=== PATIENT | female | born 1990 | race Caucasian/White ===

== ENCOUNTER → 2023-10-04 | Emergency (ER) | payer SELFPAY ==
[~2023-10-04] MED LIST: AZITHROMYCIN 250 MG TAB ONE; METOCLOPRAMIDE 10 MG/2mL INJ ONE; NA CHLORIDE 0.9% 1,000 ML ONE
[2023-10-04 02:27] LABS: Absolute Lymphocytes (CBC) 0.6 K/uL (0.7-4.9); Absolute Monocytes 0.6 K/uL (0.1-1.3); Basophils % 0.2 % (0-1.3); Eosinophils % 0.2 % (0-4.4); Hematocrit 37.1 % (36.0-45.0); Hemoglobin 12.6 g/dL (12.0-15.0); Lymphocytes % 5.1 % (15.3-44.8); MCHC 33.9 g/dL (32.0-36.0); MCV 97.3 fL (80-100); Monocytes % 5.2 % (3.3-12.3); Neutrophils % 89.3 % (41.7-73.7); Nucleated Red Blood Cells % 0.1 % (0-0); Platelets 166 thou/uL (152-406); RBC Red Blood Cell Count 3.82 M/uL (3.86-4.86); Red Cell Distribution Width 12.6 % (12.1-15.2)
[2023-10-04 02:32] LABS: Albumin 3.6 g/dL (3.4-5.0); Anion Gap 8.8 mEq/L (5.0-15.0); Bilirubin Total 0.6 mg/dL (0.2-1.0); Globulin 3.5 g/dL (2.3-3.5); Potassium 3.8 mEq/L (3.5-5.1); Protein, Total 7.1 g/dL (6.4-8.2)
[2023-10-04 04:01] LABS: Band Neutrophils 9 % (0-1); Blood Morphology Comment NOT SEEN (NOT SEEN); Lymphocytes 4 % (15-42); Monocytes 5 % (0-10); Platelet Estimate ADEQ
--- NOTE | 2023-10-04 04:37 | ER ---
Nurse's Notes [facility] Name: Mckenna Wang Age: 33 yrs Sex: Female : 1990 Arrival Date: 10/04/2023 Time: 00:57 Bed 8 Private MD: Diagnosis: Lobar pneumonia, unspecified organism;left lung pneumonia Presentation: 10/03 01:14 Chief complaint: Patient states: had an endoscopy done today with a few biopsys at 3 lg3 and i started running fever around 1900 tonight. tmax 101.3. 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 Coronavirus screen: Client denies travel out of the [place] in the last 14 days. At this time, the client does not indicate any symptoms associated with coronavirus-19. Ebola Screen: No symptoms or risks identified at this time. Initial Sepsis Screen: Does the patient meet any 2 criteria? No. Patient's initial sepsis screen is negative. Does the patient have a suspected source of infection? No. Patient's initial sepsis screen is negative. Risk Assessment: Do you want to hurt yourself or someone else? Patient reports no desire to harm self or others. Onset of symptoms was October 03, 2023. 01:14 Method Of Arrival: Ambulatory lg3 01:14 Acuity: RHIANNON 3 lg3 Triage Assessment: 01:20 General: Appears in no apparent distress. uncomfortable, Behavior is calm, cooperative. lg3 Pain: Complains of pain in abdomen. EENT: No deficits noted. No signs and/or symptoms were reported regarding the EENT system. Neuro: No deficits noted. Ramires Agitation-Sedation Scale (RASS): 0 - Alert and Calm Level of Consciousness is awake, alert, obeys commands, Oriented to person, place, time, situation. Cardiovascular: No deficits noted. Denies chest pain, shortness of breath, Capillary refill < 3 seconds Clubbing of nail beds is absent JVD is absent Patient's skin is warm and dry. Respiratory: No deficits noted. Airway is patent Respiratory effort is even, unlabored, Respiratory pattern is regular, symmetrical. GI: No deficits noted. Abdomen is flat, non-distended, Reports upper abdominal pain. : No deficits noted. No signs and/or symptoms were reported regarding the genitourinary system. Derm: No deficits noted. No signs and/or symptoms reported regarding the dermatologic system. Skin is intact, is healthy with good turgor, Skin is dry, Skin is normal, Skin temperature is warm. Musculoskeletal: No deficits noted. No signs and/or symptoms reported regarding the musculoskeletal system. Circulation, motion, and sensation intact. Range of motion: intact in all extremities. 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 Flu vaccine is not up to date. - Social history:: Smoking status: Patient denies any tobacco usage or history of. Patient/guardian denies using alcohol, street drugs. - Family history:: not pertinent. Screenin:48 [facility] ED Fall Risk Assessment (Adult) History of falling in the last 3 months, lg3 including since admission No falls in past 3 months (0 pts). Abuse screen: Denies threats or abuse. Denies injuries from another. Nutritional screening: No deficits noted. Tuberculosis screening: No symptoms or risk factors identified. Assessment: 01:48 General: see triage assessment. lg3 02:37 Reassessment: Patient appears in no apparent distress at this time. No changes from km8 previously documented assessment. Patient and/or family updated on plan of care and expected duration. Pain level reassessed. Patient is alert, oriented x 3, equal unlabored respirations, skin warm/dry/pink. 04:17 Reassessment: Patient and/or family updated on plan of care and expected duration. Pain tm6 level reassessed. Patient is alert, oriented x 3, equal unlabored respirations, skin warm/dry/pink. 04:49 Reassessment: Patient and/or family updated on plan of care and expected duration. Pain tm6 level reassessed. Patient is alert, oriented x 3, equal unlabored respirations, skin warm/dry/pink. Vital Signs: 01:14 BP 108 / 70; Pulse 93; Resp 17 S; Temp 99.1(O); Pulse Ox 100% on R/A; Weight 63.5 kg lg3 (R); Height 5 ft. 8 in. (R); 02:37 BP 102 / 70; Pulse 80; Resp 18; Pulse Ox 100% on R/A; km8 04:49 BP 104 / 74; Pulse 99; Resp 17; Temp 99.9(O); Pulse Ox 100% on R/A; Pain 0/10; tm6 01:14 Body Mass Index 21.29 (63.50 kg, 172.72 cm) lg3 04:49 Pain Scale: Adult tm6 Kurt Coma Score: 04:39 Eye Response: spontaneous(4). Motor Response: obeys commands(6). Verbal Response: sp4 oriented(5). Total: 15. ED Course: 00:59 Patient arrived in ED. jj6 01:20 Triage completed. lg3 01:20 Arm band placed on right wrist. lg3 01:25 Reinaldo Foley MD is Attending Physician. sp4 01:48 Bernadette Rodrigues RN is Primary Nurse. lg3 01:48 Patient has correct armband on for positive identification. lg3 01:48 Patient maintains SpO2 saturation greater than 95% on room air. lg3 01:58 CBC with Diff Sent. tm6 01:58 CMP Sent. tm6 01:58 Lipase Sent. tm6 02:00 Inserted saline lock: 22 gauge in right antecubital area, using aseptic technique. [facility] Blood collected. 02:01 Initial lab(s) drawn, by ky, sent to lab. f 02:05 CBC with Diff Sent. f 02:05 CMP Sent. f 02:05 Lipase Sent. [facility] 02:05 Test, Serum Sent. [facility] 02:06 Provided Education on: plan of care. Client placed on continuous cardiac and pulse tm6 oximetry monitoring. NIBP monitoring applied. Pulse ox on. NIBP on. Door closed. Noise minimized. Warm blanket given. 02:[address] via wheelchair. km8 02:58 CT Chest, Abdomen, Pelvis - W/Contrast In Process Unspecified. EDMS 04:50 No provider procedures requiring assistance completed. IV discontinued, intact, tm6 bleeding controlled, No redness/swelling at site. Pressure dressing applied. Administered Medications: 02:06 Drug: NS 0.9% IV 1000 ml IV at 1 bolus Per protocol; 1000 mL bolus Route: IV; Rate: 1 tm6 bolus; Site: right antecubital; 04:30 Follow up: Response: No adverse reaction; IV Status: Completed infusion; IV Intake: tm6 1000ml 02:06 Not Given (Patient Refused): [id number] mg IVP once; over 1 to 2 minutes tm6 04:49 Drug: AZITHromycin PO 500 mg PO once Route: PO; tm6 Medication: 02:06 VIS not applicable for this client. tm6 Intake: 04:30 IV: 1000ml; Total: 1000ml. tm6 Outcome: 04:37 Discharge ordered by . sp4 04:50 Discharged to home ambulatory, with family, tm6 04:50 Condition: stable 04:50 Discharge instructions given to patient, family, Instructed on discharge instructions, follow up and referral plans. medication usage, Demonstrated understanding of instructions, follow-up care, medications, Prescriptions given X 1, 04:50 Patient left the ED. tm6 Signatures: Dispatcher [employer] EDMS Bernadette Rodrigues RN RN lg3 Kari Angelesj6 Reinaldo Foley MD MD sp4 Tamara Tuttle [facility] Chyna Hernandez RN RN km8 Gage Talbert RN RN tm6 Corrections: (The following items were deleted from the chart) 01:22 01:20 Home Meds: meloxicam 7.5 mg Oral tab 1 tab once daily; lg3 lg3 01:22 01:20 Home Meds: methocarbamol 500 mg Oral tab three times a day; lg3 lg3
--- NOTE | 2023-10-04 04:37 | EDPHYS ---
Physician Documentation [facility] Name: Mckenna Wang Age: 33 yrs Sex: Female : 1990 Arrival Date: 10/04/2023 Time: 00:57 Bed 8 Private MD: ED Physician Reinaldo Foley HPI: 10/03 01:25 This 33 yrs old Female presents to ER via Ambulatory with complaints of sp4 Fever, Post Surgical Problem. 04:19 Patient states that after the procedure she went home and developed fever.... Patient sp4 is here with fever after upper endoscopy done on 10/03/2023. Patient presented to [facility]. Upper endoscopy revealed examination of upper and lower esophagus was normal stomach was easily entered and closely examined the examination of the stomach was normal scope was passed through pylorus into the duodenum. The examination of the duodenal bulb and second part of duodenum was normal. Retroflexion showed Hill grade 1 GE valve, duodenal aspirate done to rule out SIBO. Disaccharides biopsy done. Gastric biopsies done to rule out H. pylori, duodenal biopsies done to rule out celiac disease.. 04:27 He has some symptoms of abdominal pain epigastric pain bloating and abdominal sp4 distention. For which patient has seen Dr Avila Taylor with gastroenterology at [facility]. Besides EGD patient also had endoscopic ultrasonography that revealed normal pancreas, normal liver biliary system. 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 Flu vaccine is not up to date. - Social history:: Smoking status: Patient denies any tobacco usage or history of. Patient/guardian denies using alcohol, street drugs. - Family history:: not pertinent. ROS: 04:39 Constitutional: Today for fever subjective sp4 04:39 All other systems are negative, Exam: 04:39 Constitutional: This is a well developed, well nourished patient who is awake, alert, sp4 and in no acute distress. Head/Face: Normocephalic, atraumatic. Eyes: Pupils equal round and reactive to light, extra-ocular motions intact. Lids and lashes normal. Conjunctiva and sclera are not injected. Cornea within normal limits. Periorbital areas with no swelling, redness, or edema. ENT: Nares patent. No nasal discharge, no septal abnormalities noted. Tympanic membranes are normal and external auditory canals are clear. Oropharynx with no redness, swelling, or masses, exudates, or evidence of obstruction, uvula midline. Mucous membranes moist. Neck: Trachea midline, no thyromegaly or masses palpated, and no cervical lymphadenopathy. Supple, full range of motion without nuchal rigidity, or vertebral point tenderness. Chest/axilla: Normal chest wall appearance and motion. Nontender with no deformity. No lesions are appreciated. Cardiovascular: Regular rate and rhythm with a normal S1 and S2. No gallops, murmurs, or rubs. Normal PMI, no JVD. No pulse deficits. Respiratory: Lungs have equal breath sounds bilaterally, clear to auscultation and percussion. No rales, rhonchi or wheezes noted. No increased work of breathing, no retractions or nasal flaring. Abdomen/GI: Soft, with normal bowel sounds. No distension or tympany. No guarding or rebound. No evidence of tenderness throughout. Back: No spinal tenderness. No costovertebral tenderness. Skin: Warm, dry with normal turgor. Normal color with no rashes, no lesions, and no evidence of cellulitis. MS/ Extremity: Pulses equal, no cyanosis. Neurovascular intact. Full, normal range of motion. Neuro: Awake and alert, GCS 15, oriented to person, place, time, and situation. Cranial nerves II-XII grossly intact. Motor strength 5/5 in all extremities. Sensory grossly intact. Psych: Awake, alert, with orientation to person, place and time. Behavior, mood, and affect are within normal limits Vital Signs: 01:14 BP 108 / 70; Pulse 93; Resp 17 S; Temp 99.1(O); Pulse Ox 100% on R/A; Weight 63.5 kg lg3 (R); Height 5 ft. 8 in. (R); 02:37 BP 102 / 70; Pulse 80; Resp 18; Pulse Ox 100% on R/A; km8 04:49 BP 104 / 74; Pulse 99; Resp 17; Temp 99.9(O); Pulse Ox 100% on R/A; Pain 0/10; tm6 01:14 Body Mass Index 21.29 (63.50 kg, 172.72 cm) lg3 04:49 Pain Scale: Adult tm6 Kurt Coma Score: 04:39 Eye Response: spontaneous(4). Motor Response: obeys commands(6). Verbal Response: sp4 oriented(5). Total: 15. MDM: 01:36 Patient medically screened. sp4 04:31 ED course: CLINICAL HISTORY: fever and pain after upper endoscopy COMPARISON: None. sp4 TECHNIQUE: CT CHESTABDOMEN PELVIS WITH IV CONTRAST on 10/04/2023 1:35 AM CDT. MIPS reconstructions were generated. This exam was performed according to our departmental dose-optimization program, which includes automated exposure control, adjustment of the mA and/or kV according to patient size and/or use of iterative reconstruction technique. FINDINGS: Vascular: Thoracic aorta is normal in course and caliber without aneurysm or dissection. Pulmonary arteries are adequately opacified without acute or chronic filling defects. Abdominal aorta is normal in course and caliber without aneurysm. Pelvic arteries are patent without aneurysm or occlusion. Chest: The heart is normal in size. There is no pericardial effusion. Intrathoracic lymph nodes are not enlarged. There is no pleural effusion, pleural thickening or pneumothorax. Central airways are patent. There is patchy airspace disease within the lingula. Abdomen: The liver is normal in appearance. There is no biliary dilatation. Gallbladder is normal in appearance. The pancreas and spleen are normal in appearance. The adrenal glands and kidneys are unremarkable. There is no free air. There is no retroperitoneal adenopathy. Pelvis: There is large amount of stool throughout the colon. Urinary bladder is unremarkable. There is no free fluid. Uterus is normal in size. Appendix is normal. Skeleton: There are no acute osseous findings. No suspicious bony lesions. IMPRESSION: Minimal lingular developing pneumonia. No acute process in the abdomen or pelvis. . 04:39 Differential diagnosis: viral Infection, bacterial infection, URI, bronchitis, sp4 pneumonia gastroenteritis. Data reviewed: vital signs, nurses notes, old medical records, lab test result(s), radiologic studies, CT scan. Consideration of Admission/Observation Escalation of care including admission/observation considered. ED course: Presents with fever after endoscopy. CT was done mainly to rule out esophageal or gastric perforation. CT has revealed no sign of esophageal or gastric perforation no sign of free air. Minimal developing pneumonia left lingula and also left midlung. Patient is stable for discharge home with p.o. Zithromax for 5 days to take care of typical and atypical pneumonia. 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 10/03 01:34 Order name: CBC with Diff; Complete Time: 04:31 sp4 10/03 01:34 Order name: CMP; Complete Time: 04:31 sp4 10/03 01:34 Order name: Lipase; Complete Time: 04:31 sp4 10/03 01:34 Order name: Test, Serum; Complete Time: 04:31 sp4 10/03 02:31 Order name: Manual Differential; Complete Time: 04:31 EDMS 10/03 01:35 Order name: CT Chest, Abdomen, Pelvis - W/Contrast sp4 10/03 01:34 Order name: IV Saline Lock; Complete Time: 01:58 sp4 10/03 01:34 Order name: Labs collected and sent; Complete Time: 01:58 sp4 Administered Medications: 02:06 Drug: NS 0.9% IV 1000 ml IV at 1 bolus Per protocol; 1000 mL bolus Route: IV; Rate: 1 tm6 bolus; Site: right antecubital; 04:30 Follow up: Response: No adverse reaction; IV Status: Completed infusion; IV Intake: tm6 1000ml 02:06 Not Given (Patient Refused): [id number] mg IVP once; over 1 to 2 minutes tm6 04:49 Drug: AZITHromycin PO 500 mg PO once Route: PO; tm6 Disposition Summary: 10/04/23 04:37 Discharge Ordered Notes: Location: Home sp4 Problem: new sp4 Symptoms: have improved sp4 Condition: Stable sp4 Diagnosis - Lobar pneumonia, unspecified organism sp4 - left lung pneumonia sp4 Followup: sp4 - With: Private Physician - When: 7 - 10 days - Reason: Recheck today's complaints Discharge Instructions: - Discharge Summary Sheet sp4 - Community-Acquired Pneumonia, Adult sp4 Forms: - Patient Portal Instructions sp4 Prescriptions: - Zithromax Z-Loki 250 mg Oral Tablet - take 1 tablet ORAL route as directed for 5 days Day 1 - take two (2) tablets sp4 one time. Day 2, 3, 4 , 5 take one (1) tablet once daily.; 6 tablet; Refills: 0, Product Selection Permitted Signatures: Dispatcher [employer] Bernadette Wagner RN RN lg3 Reinaldo Foley MD MD sp4 Gage Talbert RN RN tm6 Corrections: (The following items were deleted from the chart) 01:22 01:20 Home Meds: meloxicam 7.5 mg Oral tab 1 tab once daily; lg3 lg3 01:22 01:20 Home Meds: methocarbamol 500 mg Oral tab three times a day; lg3 lg3
[2023-10-04 04:55] VITALS: O2SAT 100
[2023-10-04 05:18] VITALS: BP 104/74; TEMP 99.9
--- NOTE | 2023-10-04 19:06 | RAD REPORT ---
EXAM DESCRIPTION: CT CHEST ABDOMEN PELVIS WITH IV CONTRAST CLINICAL HISTORY: Fever and pain after upper endoscopy COMPARISON: None. TECHNIQUE: CT CHEST ABDOMEN PELVIS WITH IV CONTRAST on 10/04/2023 1:35 AM CDT. MIPS reconstructions w ere generated. This exam was performed according to our departmental dose-optimization program, which includes autom ated exposure control, adjustment of the mA and/or kV according to patient size and/or use of iterati ve reconstruction technique. FINDINGS: Vascular: Thoracic aorta is normal in course and caliber without aneurysm or dissection. P ulmonary arteries are adequately opacified without acute or chronic filling defects. Abdominal aorta is normal in course and caliber without aneurysm. Pelvic arteries are patent without aneurysm or occl usion. Chest: The heart is normal in size. There is no pericardial effusion. Intrathoracic lymph nodes are n ot enlarged. There is no pleural effusion, pleural thickening or pneumothorax. Central airways are patent. There i s patchy airspace disease within the lingula. Abdomen: The liver is normal in appearance. There is no biliary dilatation. Gallbladder is normal in appearance. The pancreas and spleen are normal in appearance. The adrenal glands and kidneys are unre markable. There is no free air. There is no retroperitoneal adenopathy. Pelvis: There is large amount of stool throughout the colon. Urinary bladder is unremarkable. There i s no free fluid. Uterus is normal in size. Appendix is normal. Skeleton: There are no acute osseous findings. No suspicious bony lesions. IMPRESSION: Minimal lingular developing pneumonia. No acute process in the abdomen or pelvis. Electronically signed by: John Herrera MD 10/04/2023 04:09 AM CDT Due to temporary technical issues with the PACS/Fluency reporting system, reports are being signed by the in house radiologists without review as a courtesy to insure prompt reporting. The interpreting radiologist is fully responsible for the content of the report.
== END ==
LOC: ER 00:57
DX: J18.1 Lobar pneumonia, unspecified organism (principal); Z98.890 Other specified postprocedural states
CPT/HCPCS: 36415; 71260; 74177; 80053; 83690; 84703; 85025; J2765; J7030; Q9967

== ENCOUNTER 2024-05-16 11:49 | Emergency (ER) | payer OTHER ==
--- NOTE | 2024-05-16 13:23 | RAD REPORT ---
EXAMINATION: ONE VIEW CHEST XR CLINICAL INDICATION: CHEST PAIN TECHNIQUE: Frontal chest projection is submitted. Examination is limited by patient positioning and t echnique. COMPARISON: 10/04/2023 FINDINGS: The lungs are well inflated and clear. The heart is normal in size. No displaced fractures identified . IMPRESSION: No acute intrathoracic abnormalities.
[2024-05-16 13:58] LABS: Absolute Eosinophils 0.1 K/uL (0-0.5); Absolute Lymphocytes (CBC) 1.3 K/uL (0.7-4.9); Absolute Monocytes 0.5 K/uL (0.1-1.3); Absolute Neutrophil 4.2 K/uL (1.8-8.0); Basophils % 0.4 % (0-1.3); Eosinophils % 1.4 % (0-4.4); Hematocrit 38.7 % (36.0-45.0); Lymphocytes % 20.5 % (15.3-44.8); MCH 32.9 pg (27.0-35.0); MCHC 33.5 g/dL (32.0-36.0); MCV 98.3 fL (80-100); MPV 10.2 fL (7.6-11.3); Monocytes % 8.6 % (3.3-12.3); Neutrophils % 69.1 % (41.7-73.7); Platelets 153 thou/uL (152-406); RBC Red Blood Cell Count 3.94 M/uL (3.86-4.86); Red Cell Distribution Width 12.1 % (12.1-15.2)
[2024-05-16 14:13] LABS: ALT/SGPT 51 U/L (13-56); AST/SGOT 23 U/L (15-37); Albumin 3.6 g/dL (3.4-5.0); Albumin/Globulin Ratio 1.1 (1.1-1.8); Alkaline Phosphatase 64 U/L (45-117); BUN Blood Urea Nitrogen 12 mg/dL (7-18); Bicarbonate 25 mEq/L (21-32); Bilirubin Total 0.4 mg/dL (0.2-1.0); Globulin 3.3 g/dL (2.3-3.5); Glomerular Filtration Rate 86 ml/min (=/>90); Glucose Level 92 mg/dL (74-106); Lipase 31 U/L (13-75); Protein, Total 6.9 g/dL (6.4-8.2); Sodium Level 139 mEq/L (136-145)
[2024-05-16 14:15] LABS: Troponin High Sensitivity < 3.0 pg/mL (<58.9)
--- NOTE | 2024-05-16 14:18 | ER ---
Nurse's Notes [facility] Name: Mckenna Wang Age: 34 yrs Sex: Female : 1990 Arrival Date: 05/16/2024 Time: 11:49 Bed 10 Private MD: Diagnosis: Chronic chest pain Presentation: 05/16 12:09 Chief complaint: Patient states: LEFT CHEST DULLNESS AND BURNING SENSATION X 6 MONTHS db STATES IS CONCERNED PNA IS COMING BACK. STATES WOKE UP WITH LOWER CHEST UPPER ABD PAIN AND TIGHTNESS. 12:09 Coronavirus screen: Client denies travel out of the [place] in the last 14 days. At this db time, the client does not indicate any symptoms associated with coronavirus-19. Ebola Screen: Patient negative for fever greater than or equal to 101.5 degrees Fahrenheit, and additional compatible Ebola Virus Disease symptoms Patient denies exposure to infectious person. Patient denies travel to an Ebola-affected area in the 21 days before illness onset. No symptoms or risks identified at this time. Initial Sepsis Screen: Does the patient meet any 2 criteria? No. Patient's initial sepsis screen is negative. Does the patient have a suspected source of infection? No. Patient's initial sepsis screen is negative. Risk Assessment: Do you want to hurt yourself or someone else? Patient reports no desire to harm self or others. Onset of symptoms was May 16, 2024. 12:09 Method Of Arrival: Ambulatory db 12:09 Acuity: RHIANNON 3 db Triage Assessment: 12:12 General: Appears in no apparent distress. comfortable, Behavior is calm, cooperative. db Pain: Complains of pain in chest and abdomen. Neuro: Level of Consciousness is awake, alert, obeys commands, Oriented to person, place, time, situation. Cardiovascular: Reports chest pain. Cardiovascular: Reports. Respiratory: Airway is patent Respiratory effort is even, unlabored, Respiratory pattern is regular, symmetrical. GI: Reports upper abdominal pain. 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 - Infectious Disease History:: Denies. - Social history:: Smoking status: Patient denies any tobacco usage or history of. Screenin:47 [facility] ED Fall Risk Assessment (Adult) History of falling in the last 3 months, db including since admission No falls in past 3 months (0 pts) Confusion or Disorientation No (0 pts) Intoxicated or Sedated No (0 pts) Impaired Gait No (0 pts) Mobility Assist Device Used No (0 pt) Altered Elimination No (0 pt) Score/Fall Risk Level 0 - 2 = Low Risk Oriented to surroundings, Maintained a safe environment, Educated pt \\T\\ family on fall prevention, incl call for assistance when getting out of bed, Assessed \\T\\ reinforced patient's understanding of fall precautions. Abuse screen: Denies threats or abuse. Denies injuries from another. Nutritional screening: No deficits noted. Tuberculosis screening: No symptoms or risk factors identified. Assessment: 12:44 General: Appears in no apparent distress. Behavior is calm, cooperative. Pain: db Complains of pain in chest Pain radiates to left arm Quality of pain is described as burning, dull. Pain: Pain began "at least 6 months ago" Alleviated by nothing. Neuro: Level of Consciousness is awake, alert, obeys commands, Oriented to person, place, time, situation, Moves all extremities. Full function Gait is steady, Speech is normal, Facial symmetry appears normal. Cardiovascular: Reports chest pain, Denies diaphoresis, fatigue, lightheadedness, nausea, palpitations, shortness of breath, syncope, vomiting, Capillary refill < 3 seconds Patient's skin is warm and dry. Rhythm is sinus rhythm. Respiratory: Airway is patent Respiratory effort is even, unlabored, Respiratory pattern is regular, symmetrical, Breath sounds are clear bilaterally. GI: No signs and/or symptoms were reported involving the gastrointestinal system. : No signs and/or symptoms were reported regarding the genitourinary system. EENT: No signs and/or symptoms were reported regarding the EENT system. Derm: No signs and/or symptoms reported regarding the dermatologic system. Musculoskeletal: No signs and/or symptoms reported regarding the musculoskeletal system. 14:36 Reassessment: No changes from previously documented assessment. Patient and/or family tl4 updated on plan of care and expected duration. Pain level reassessed. Patient is alert, oriented x 3, equal unlabored respirations, skin warm/dry/pink. Vital Signs: 12:09 BP 100 / 75; Pulse 88; Resp 18; Temp 98.8; Pulse Ox 100% ; Weight 65.77 kg; Height 5 db ft. 8 in. ; Pain 3/10; 12:44 BP 112 / 70; Pulse 84; Resp 16; Pulse Ox 100% on R/A; tl4 14:37 BP 110 / 68; Pulse 72; Resp 16; Temp 98.3(O); Pulse Ox 100% on R/A; tl4 12:09 Body Mass Index 22.05 (65.77 kg, 172.72 cm) db 12:09 Pain Scale: Adult db ED Course: 11:53 Patient arrived in ED. mr 12:01 Lisbet Izaguirre MD is Attending Physician. sd2 12:12 Triage completed. db 12:12 Arm band placed on Patient placed in waiting room. db 12:44 Emilee Caldwell, RN is Primary Nurse. db 12:47 Patient has correct armband on for positive identification. Placed in gown. Bed in low db position. Call light in reach. Side rails up X2. Adult w/ patient. Provided Education on: ed process, call barrientos. Client placed on continuous cardiac and pulse oximetry monitoring. NIBP monitoring applied. radiation monitor on. Door closed. Noise minimized. Lights dimmed. Moved to private room. Warm blanket given. 12:48 No provider procedures requiring assistance completed. Patient maintains SpO2 db saturation greater than 95% on room air. 12:51 XRAY Chest (1 view) In Process Unspecified. EDMS 13:32 EKG done, by ED staff, reviewed by Lisbet Izaguirre MD. db 13:33 Primary Nurse role handed off by Emilee Caldwell, RN tl4 13:33 Hiro Salgado, CARLY is Primary Nurse. tl4 13:48 Initial lab(s) drawn, by mt, sent to lab. Inserted saline lock: 22 gauge in right tl4 antecubital area, using aseptic technique. Blood collected. Flushed with 10 mL NS. 13:48 D-Dimer Sent. tl4 13:48 Troponin High Sensitivity Sent. tl4 13:48 Lipase Sent. tl4 13:48 CMP Sent. tl4 13:48 CBC with Diff Sent. tl4 14:37 IV discontinued, intact, bleeding controlled, No redness/swelling at site. Pressure tl4 dressing applied. Administered Medications: No medications were administered Medication: 12:47 VIS not applicable for this client. db Outcome: 14:18 Discharge ordered by . sd2 14:37 Discharged to home ambulatory, with family, tl4 14:37 Condition: stable 14:37 Discharge instructions given to patient, family, Instructed on discharge instructions, follow up and referral plans. Demonstrated understanding of instructions, follow-up care, 14:38 Patient left the ED. tl4 Signatures: Dispatcher [employer] EDMegan Cotto, Reg Reg mr Lisbet Izaguirre MD MD sd2 Emilee Caldwell, RN RN db Hiro Salgado RN RN tl4 Corrections: (The following items were deleted from the chart) 12:12 12:09 Chief complaint: Patient states: LEFT CHEST PAIN X 6 MONTHS STATES FEELS LIKE PNA db db
--- NOTE | 2024-05-16 14:18 | EDPHYS ---
Physician Documentation [facility] Name: Mckenna Wang Age: 34 yrs Sex: Female : 1990 Arrival Date: 05/16/2024 Time: 11:49 Bed 10 Private MD: ED Physician Lisbet Izaguirre HPI: 05/16 14:09 This 34 yrs old Female presents to ER via Ambulatory with complaints of Chest Pain. sd2 14:09 34 yo F presents with CC of left upper chest pain for the past 6 months. Reports sd2 ongoing since she was last at our facility and diagnosed with PNA after an EGD. She took the antibiotics and no further fevers or other symptoms but the pain has remained and she states feels like a dull ache and burning and sometimes she has numbness to the inside of her left forearm as well. Denies SOB, n/v or diaphoresis. Reports a hx of Lyme disease as well.. 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 - Infectious Disease History:: Denies. - Social history:: Smoking status: Patient denies any tobacco usage or history of. ROS: 14:09 Constitutional: Negative for fever, chills, and weight loss, Eyes: Negative for injury, sd2 pain, redness, and discharge, Cardiovascular: Positive for chest pain, Negative for palpitations, and edema, Respiratory: Negative for shortness of breath, cough, wheezing. Abdomen/GI: Negative for abdominal pain, nausea, vomiting, diarrhea. MS/Extremity: Negative for injury and deformity, Skin: Negative for injury, rash, and discoloration, Neuro: Negative for headache and tingling. Positive for numbness. Exam: 14:09 Constitutional: This is a well developed, well nourished patient who is awake, alert, sd2 and in no acute distress. Head/Face: Normocephalic, atraumatic. Eyes: EOMI, normal conjunctiva bilaterally Chest/axilla: Normal chest wall appearance and motion. Nontender with no deformity. Cardiovascular: Regular rate and rhythm with a normal S1 and S2. No gallops, murmurs, or rubs. 2+ distal pulses. Respiratory: Lungs have equal breath sounds bilaterally, clear to auscultation and percussion. No rales, rhonchi or wheezes noted. No increased work of breathing, no retractions or nasal flaring. Abdomen/GI: Soft, non-tender, with normal bowel sounds. No guarding or rebound. No evidence of tenderness throughout. Skin: Warm, dry with normal turgor. Normal color with no rashes, no lesions, and no evidence of cellulitis. MS/ Extremity: Pulses equal, no cyanosis. Neurovascular intact. Full, normal range of motion. Psych: Awake, alert, with orientation to person, place and time. Behavior, mood, and affect are within normal limits. 14:09 ECG was reviewed by the Attending Physician. NSR, rate 73, no STEMI criteria Vital Signs: 12:09 BP 100 / 75; Pulse 88; Resp 18; Temp 98.8; Pulse Ox 100% ; Weight 65.77 kg; Height 5 db ft. 8 in. ; Pain 3/10; 12:44 BP 112 / 70; Pulse 84; Resp 16; Pulse Ox 100% on R/A; tl4 14:37 BP 110 / 68; Pulse 72; Resp 16; Temp 98.3(O); Pulse Ox 100% on R/A; tl4 12:09 Body Mass Index 22.05 (65.77 kg, 172.72 cm) db 12:09 Pain Scale: Adult db MDM: 12:19 Medical Screening Exam initiated sd2 14:09 Differential diagnosis: ACS, Lyme disease, autoimmune disease, GERD, PE, dissection sd2 among others. Data reviewed: vital signs, nurses notes, lab test result(s), EKG, radiologic studies. 14:15 Care significantly affected by the following chronic conditions: Lyme disease. sd2 Counseling: I had a detailed discussion with the patient and/or guardian regarding the historical points, exam findings, and any diagnostic results supporting the discharge/admit diagnosis, lab results, radiology results, the need for outpatient follow up, to return to the emergency department if symptoms worsen or persist or if there are any questions or concerns that arise at home. ED course: Labs and imaging reviewed with no acute findings. Symptoms ongoing chronically. Pt advised to follow up and establish care with a PCP. She is comfortable with plan for discharge and outpatient follow up and verbalizes understanding of strict return precautions. . 05/16 12:33 Order name: CBC with Diff; Complete Time: 14:15 sd2 05/16 12:33 Order name: CMP; Complete Time: 14:15 sd2 05/16 12:33 Order name: Lipase; Complete Time: 14:15 sd2 05/16 12:33 Order name: Troponin High Sensitivity; Complete Time: 14:15 sd2 05/16 12:45 Order name: D-Dimer; Complete Time: 14:15 sd2 05/16 12:33 Order name: XRAY Chest (1 view); Complete Time: 13:25 sd2 05/16 12:33 Order name: EKG - Nurse/Tech; Complete Time: 13:32 sd2 Administered Medications: No medications were administered Disposition Summary: 05/16/24 14:18 Discharge Ordered Problem: an ongoing problem sd2 Symptoms: are unchanged sd2 Condition: Stable sd2 Diagnosis - Chronic chest pain sd2 Followup: sd2 - With: Private Physician - When: 2 - 3 days - Reason: Recheck today's complaints, Continuance of care, Re-evaluation by your physician Discharge Instructions: - Discharge Summary Sheet sd2 - Nonspecific Chest Pain, Adult sd2 Forms: - Medication Reconciliation Form sd2 - Antibiotic Education sd2 - Prescription Opioid Use sd2 - Patient Portal Instructions sd2 - Leadership Thank You Letter sd2 Signatures: Dispatcher [employer] EDMS Lisbet Izaguirre MD MD sd2 Emilee Caldwell RN RN db Corrections: (The following items were deleted from the chart) 12: 12:33 CBC+H.LAB.BRZ ordered. EDMS EDMS 12: 12:33 COMPREHENSIVE METABOLIC PANEL+C.LAB.BRZ ordered. EDMS EDMS 12:33 12:33 LIPASE+C.LAB.BRZ ordered. EDMS EDMS 12:33 12:33 Troponin High Sensitivity+C.LAB.BRZ ordered. EDMS EDMS 12:33 12:33 Chest Single View+RAD.RAD.BRZ ordered. EDMS EDMS
[2024-05-16 18:18] VITALS: O2SAT 100
[2024-05-16 18:29] VITALS: BP 110/68; TEMP 98.3
--- NOTE | 2024-05-17 14:15 | EKG ---
Test Date: 2024-05-16 Test Time: 13:29:09 Shirt Folder: TL MEASUREMENT RESULTS: Intervals: Rate: 73 SC: 150 QRSD: 68 QT: 386 QTc: 425 [place]: P: 62 SC: 150 QRS: 75 T: 15 INTERPRETIVE STATEMENTS: Normal sinus rhythm Low voltage QRS Nonspecific T wave abnormality Abnormal ECG Compared to ECG 12/28/2016 18:48:44 Sinus arrhythmia no longer present T-wave abnormality still present Electronically Signed On 05-17-24 14:12:26 CDT by Paulie Bravo
== END 2024-05-16 14:38 | disposition home or self-care (01) ==
LOC: ER 11:49
DX: R07.9 Chest pain, unspecified (principal)
CPT/HCPCS: 36415; 71045; 80053; 83690; 84484; 85025; 85379; 93005; 99284